=== PATIENT | female | born 1970 | race American Indian/Alaskan Native ===

== ENCOUNTER 2021-09-06 08:19 | Day surgery (SDC) | payer BC ==
[2021-09-06] MEDS ORDERED: Lactated Ringers 1,000 ML IV ONE (09:00)
[2021-09-06] MEDS ORDERED: Cyanocobalamin (Vitamin B12) 1,000 MCG/ML SDV IM ONE (09:00)
[2021-09-06 09:21] LABS: CORONAVIRUS COVID-19 NAA NEGATIVE (NEGATIVE)
[2021-09-06] MEDS ORDERED: Glycopyrrolate 0.2 MG/ML 2 ML SDV IVPUSH ONE (09:45)
[2021-09-06] MEDS ORDERED: MVI, Adult with Vitamin K 10 ML, Thiamine 200 MG, Zinc/Copper/Manganese/Selenium 1 ML i... IV ONE ×4 (10:00)
[2021-09-06] MEDS ORDERED: Propofol 200 MG/20 ML SDV ONE (10:37)
[2021-09-06] MEDS ORDERED: Midazolam 1 MG/ML 2 ML SDV ONE (10:37)
[2021-09-06] MEDS ORDERED: fentaNYL 100 MCG/2 ML SDV ONE (10:37)
[2021-09-06] MEDS ORDERED: Sodium Chloride 0.9% 500 ML ONE (11:58)
--- NOTE | 2021-09-07 14:24 | OR ---
DATE OF PROCEDURE: 09/06/2021 SURGEON: Fabian Dyer MD PREOPERATIVE DIAGNOSIS: Intolerance to laparoscopic adjustable gastric band. POSTOPERATIVE DIAGNOSES: Intolerance to laparoscopic adjustable gastric band. 1. Marked dilation of esophagus with retained bile and food fragments within the distal esophagus. 2. 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 3. Antral gastritis with a single erosion. OPERATIVE PROCEDURE: Upper gastrointestinal endoscopy with: 1. Biopsy of esophagogastric junction for histologic evaluation. 2. Mobilization of retained food within esophagus and to the more distal stomach (53999). 3. Biopsies of the antrum for CLOtest (54831). ANESTHESIA: IV sedation. INDICATION FOR PROCEDURE: The patient status post laparoscopic adjustable gastric band. She over the last year or more has had increasing problems with severe reflux symptoms, vomiting, and quite often cough with a distant aspiration of the esophageal contents when sleeping as such. All the fluid was then deflated out of the band for several months, then she presently is on twice a day regimen of Protonix 40 mg. Despite that, she has ongoing symptoms and is interested in having the band removed. Plan is to proceed with upper GI endoscopy for evaluation of the current anatomic status. Potential risks of the procedure including bleeding and perforation were discussed and the patient wishes to proceed. DETAILS OF PROCEDURE: The patient was taken to the operating room and placed in a left lateral decubitus position. IV sedation was administered after which the upper GI endoscope was passed orally through the length of the esophagus across the esophagogastric junction in the banded portion of the stomach and into the area of the band into the area of the stomach and through the pyloric channel into the junction of third and fourth portions of the duodenum. Findings included markedly dilated esophagus. This contained bile as well as fragments of old food pushed down to the banded portion to avoid problems with aspiration of those contents in the immediate postoperative period. marked dilation with active inflammation in the esophagogastric junction with the mucosa in that area being reddened and quite friable. 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 Remainder of the stomach revealed some reddening of the antrum and a very small amount of fibrinous exudate. Pyloric channel and visualized portions of the duodenum were unremarkable. At this point, biopsies were obtained from the esophagogastric junction and sent for CLOtest for H pylori. The patient is having ongoing treatment of her H pylori. This will be an interesting finding. Apart from that, there were multiple biopsies obtained from the esophagogastric junction, sent for histologic evaluation. No bleeding from the biopsy sites was seen. The procedure then concluded. At this point, the patient clearly meets criteria for removal of the band with esophageal dilation, retained food within the esophagus, and complications leading to including reflux, vomiting, and probable aspiration of esophageal contents related to the chronic cough issues as developed. Plan will be to obtain prior authorization with her insurance basket person regarding the band removal. Fabian Dyer MD /[id number]
== END 2021-09-06 13:20 | disposition home or self-care (01) ==
LOC: JP.SDS 08:19
PROVIDERS: ATTEND Surgery
DX: K91.89 Other postprocedural complications and disorders of digestive system (principal); K21.9 Gastro-esophageal reflux disease without esophagitis; T18.128A Food in esophagus causing other injury, initial encounter; E66.9 Obesity, unspecified; Z01.812 Encounter for preprocedural laboratory examination; Z20.822 Contact with and (suspected) exposure to COVID-19; Z68.34 Body mass index [BMI] 34.0-34.9, adult
CPT/HCPCS: 0241U; 43239; 43247; 87081; J2250; J2704; J3010; J3411; J3420; J3490; J7040; J7120

== ENCOUNTER 2021-12-03 05:30 | Day surgery (SDC) | payer BC ==
[2021-12-03] MEDS ORDERED: Acetaminophen 500 MG Tab PO ONE (05:45)
[2021-12-03] MEDS ORDERED: Celecoxib 200 MG Cap PO ONE (05:45)
[2021-12-03] MEDS ORDERED: Dextrose 5%-Lactated Ringers 1,000 ML IV SCH (06:30)
[2021-12-03] MEDS ORDERED: Bupivacaine 0.5%/EPINEPHrine 1:200,000 50 ML MDV ONE (06:38)
[2021-12-03] MEDS ORDERED: cefOXitin 2 GM Vial ONE (06:38)
[2021-12-03] MEDS ORDERED: fentaNYL 250 MCG/5 ML SDV ONE ×2 (07:05→07:45)
[2021-12-03] MEDS ORDERED: Glycopyrrolate 0.2 MG/ML 5 ML MDV ONE (07:06)
[2021-12-03] MEDS ORDERED: Rocuronium 50 MG/5 ML Vial ONE (07:06)
[2021-12-03] MEDS ORDERED: Succinylcholine 200 MG/10 ML MDV ONE (07:06)
[2021-12-03] MEDS ORDERED: Neostigmine Methylsulfate 1 MG/ML 5 ML Syringe ONE (07:06)
[2021-12-03] MEDS ORDERED: Propofol 200 MG/20 ML SDV ONE (07:06)
[2021-12-03] MEDS ORDERED: Ondansetron 4 MG/2 ML SDV ONE (07:06)
[2021-12-03] MEDS ORDERED: Dexamethasone 4 MG/ML SDV ONE (07:06)
[2021-12-03] MEDS ORDERED: cefOXitin 2 GM in Sodium Chloride 0.9% 50 ML IV ONE (07:15)
[2021-12-03] MEDS ORDERED: Ketamine 500 MG/5 ML MDV IV SCH (07:30)
[2021-12-03] MEDS ORDERED: Ketamine 17 MG in Sodium Chloride 0.9% 19.83 ML IV SCH (07:30)
[2021-12-03] MEDS ORDERED: Labetalol 20 MG/4 ML Syringe ONE (07:54)
[2021-12-03] MEDS: Bupivacaine 0.5% 50 ML MDV ONE ×2 (08:12→08:23)
[2021-12-03] MEDS: Lidocaine 1% with EPINEPHrine 1:100,000 50 ML MDV ONE ×2 (08:13→08:23)
[2021-12-03] MEDS ORDERED: hydrOXYzine HCL 100 MG/2 ML SDV IM ONE (08:48)
[2021-12-03] MEDS ORDERED: fentaNYL 100 MCG/2 ML SDV IVPUSH ONE (08:49)
[2021-12-03] MEDS ORDERED: HYDROmorphone 2 MG Tab PO PRN (10:04)
[2021-12-03] MEDS ORDERED: Ibuprofen 600 MG Tab PO ONE (12:06)
[2021-12-03] MEDS ORDERED: Cyclobenzaprine 10 MG Tab PO PRN (12:10)
== END 2021-12-03 14:10 | disposition home or self-care (01) ==
LOC: JP.SDS 05:30
PROVIDERS: ATTEND Surgery
DX: Z46.51 Encounter for fitting and adjustment of gastric lap band (principal); K44.9 Diaphragmatic hernia without obstruction or gangrene; K43.2 Incisional hernia without obstruction or gangrene; E78.5 Hyperlipidemia, unspecified; K21.9 Gastro-esophageal reflux disease without esophagitis; E66.01 Morbid (severe) obesity due to excess calories; N18.30 Chronic kidney disease, stage 3 unspecified; Z20.822 Contact with and (suspected) exposure to COVID-19
CPT/HCPCS: 88300; 88305; A9270-GY; J0171; J0330; J0694; J1100; J2405; J2704; J2710; J2795; J3010; J3410; J3490; J7030; J7121

== ENCOUNTER 2022-10-18 05:13 | Inpatient (IN) | payer BC, OTHER ==
[2022-10-18] MEDS ORDERED: Acetaminophen 500 MG Tab PO ONE (06:00)
[2022-10-18] MEDS ORDERED: Scopolamine 1.5 MG Transdermal Patch TOP SCH (06:00)
[2022-10-18] MEDS ORDERED: Dextrose 5%-Lactated Ringers 1,000 ML IV SCH (06:00)
[2022-10-18] MEDS ORDERED: Bupivacaine 0.5% 50 ML MDV ONE (06:35)
[2022-10-18] MEDS ORDERED: Lidocaine 1% with EPINEPHrine 1:100,000 50 ML MDV ONE (06:35)
[2022-10-18] MEDS ORDERED: Meropenem 500 MG SDV ONE (06:43)
[2022-10-18] MEDS ORDERED: ceFAZolin 2 GM in Sodium Chloride 0.9% 50 ML IV ONE (07:00)
[2022-10-18] MEDS ORDERED: Dexamethasone 4 MG/ML SDV ONE (07:08)
[2022-10-18] MEDS ORDERED: Succinylcholine 200 MG/10 ML MDV ONE (07:08)
[2022-10-18] MEDS ORDERED: Neostigmine Methylsulfate 1 MG/ML 5 ML Syringe ONE (07:08)
[2022-10-18] MEDS ORDERED: Ondansetron 4 MG/2 ML SDV ONE (07:08)
[2022-10-18] MEDS ORDERED: fentaNYL 250 MCG/5 ML SDV ONE ×2 (07:08→07:52)
[2022-10-18] MEDS ORDERED: Rocuronium 50 MG/5 ML Vial ONE (07:08)
[2022-10-18] MEDS ORDERED: Propofol 200 MG/20 ML SDV ONE (07:08)
[2022-10-18] MEDS ORDERED: Glycopyrrolate 0.2 MG/ML 5 ML MDV ONE (07:08)
[2022-10-18] MEDS ORDERED: Ketamine 17 MG in Sodium Chloride 0.9% 19.83 ML IV SCH (07:30)
[2022-10-18] MEDS ORDERED: Ketamine 500 MG/5 ML MDV IV SCH (07:30)
[2022-10-18] MEDS ORDERED: Ropivacaine 46 ML, dexAMETHasone 8 MG, EPINEPHrine 0.4 MG, Sodium Chloride 0.9% 31.6 ML NERVRT SCH ×4 (07:30)
[2022-10-18] MEDS ORDERED: Linezolid 600 MG/300 ML Premix Bag IRR ONE (08:20)
[2022-10-18] MEDS ORDERED: Lactated Ringers 1,000 ML ONE (08:35)
[2022-10-18] MEDS ORDERED: Sugammadex Sodium 200 MG/2 ML VIAL ONE (08:37)
[2022-10-18] MEDS ORDERED: Ketorolac 30 MG/ML SDV ONE (08:52)
[2022-10-18] MEDS: HYDROmorphone/Normal Saline 6 MG/30 ML PCA Vial IV PRN ×2 (09:55→21:48)
[2022-10-18] MEDS ORDERED: Naloxone 0.4 MG/ML SDV IV PRN (10:00)
[2022-10-18] MEDS ORDERED: Cyclobenzaprine 10 MG Tab PO PRN (10:25)
[2022-10-18] MEDS ORDERED: hydrOXYzine HCL 100 MG/2 ML SDV IM PRN (11:00)
[2022-10-18] MEDS ORDERED: Lactated Ringers 500 ML IV ONE (11:30)
[2022-10-18] MEDS ORDERED: diphenhydrAMINE 50 MG/ML SDV IVPUSH PRN (13:45)
[2022-10-18] MEDS ORDERED: Metoclopramide 10 MG/2 ML SDV IVPUSH PRN (13:45)
[2022-10-18] MEDS ORDERED: Ondansetron 4 MG/2 ML SDV IVPUSH PRN (13:45)
[2022-10-18] MEDS ORDERED: Labetalol 20 MG/4 ML Syringe IVPUSH PRN (13:45)
[2022-10-18] MEDS ORDERED: Acetaminophen 500 MG Tab PO PRN (13:45)
[2022-10-18] MEDS: ceFAZolin 2 GM in Sodium Chloride 0.9% 50 ML IV SCH ×2 (14:54→21:50)
[2022-10-18] MEDS: Acetaminophen 500 MG Tab PO SCH ×2 (14:55→21:53)
[2022-10-18] MEDS: MVI, Adult with Vitamin K 10 ML, Thiamine 200 MG, Zinc/Copper/Manganese/Selenium 1 ML i... IV SCH ×4 (15:00)
[2022-10-18] MEDS: Pantoprazole 40 MG Vial IVPUSH SCH (15:00)
[2022-10-18] MEDS: Heparin Sodium 5,000 Units/ML Vial SUBCUT SCH (17:38)
[2022-10-18] MEDS: Dextrose 5%-Lactated Ringers 1,000 ML IV SCH (21:50)
[2022-10-19] MEDS: Dextrose 5%-Lactated Ringers 1,000 ML IV SCH (05:47)
[2022-10-19] MEDS: Heparin Sodium 5,000 Units/ML Vial SUBCUT SCH ×2 (05:48→17:20)
[2022-10-19] MEDS: Acetaminophen 500 MG Tab PO SCH ×3 (05:48→21:35)
[2022-10-19] MEDS: ceFAZolin 2 GM in Sodium Chloride 0.9% 50 ML IV SCH (07:38)
[2022-10-19] MEDS ORDERED: Dextrose 5%-Lactated Ringers 1,000 ML IV SCH (08:30)
[2022-10-19] MEDS: Celecoxib 200 MG Cap PO SCH ×2 (08:48→21:34)
[2022-10-19] MEDS: SCOPOLAMINE PATCH CHECK TOP SCH (08:49)
[2022-10-19] MEDS: Bisacodyl 5 MG Tab PO SCH ×2 (10:41→21:34)
[2022-10-19] MEDS: Docusate Sodium 100 MG Cap PO SCH ×2 (10:42→21:34)
[2022-10-19] MEDS: HYDROmorphone 2 MG Tab PO PRN ×2 (10:43→17:20)
[2022-10-19] MEDS: Pantoprazole 40 MG Vial IVPUSH SCH (15:18)
[2022-10-19] MEDS: MVI, Adult with Vitamin K 10 ML, Thiamine 200 MG, Zinc/Copper/Manganese/Selenium 1 ML i... IV SCH ×4 (15:18)
[2022-10-19] MEDS ORDERED: Docusate Sodium 100 MG Cap PO SCH (21:00)
[2022-10-20] MEDS: HYDROmorphone 2 MG Tab PO PRN ×2 (03:47→09:06)
[2022-10-20] MEDS: Heparin Sodium 5,000 Units/ML Vial SUBCUT SCH (06:01)
[2022-10-20] MEDS: Acetaminophen 500 MG Tab PO SCH (06:01)
[2022-10-20] MEDS ORDERED: Cyanocobalamin (Vitamin B12) 1,000 MCG/ML SDV IM ONE (09:00)
[2022-10-20] MEDS: Bisacodyl 5 MG Tab PO SCH (09:03)
[2022-10-20] MEDS: Celecoxib 200 MG Cap PO SCH (09:03)
[2022-10-20] MEDS: Docusate Sodium 100 MG Cap PO SCH (09:03)
[2022-10-20] MEDS: SCOPOLAMINE PATCH CHECK TOP SCH (09:04)
[2022-10-20] MEDS ORDERED: Magnesium Hydroxide 400 MG/5 ML Susp 30 ML Cup PO ONE (09:45)
[2022-10-20] MEDS ORDERED: Magnesium Hydroxide 400 MG/5 ML Susp 30 ML Cup PO PRN (17:30)
== END 2022-10-20 11:20 | disposition home or self-care (01) | DRG 227 ==
LOC: JP.SDS 05:13 → JP.MS 08:50
PROVIDERS: ADMIT Surgery; ATTEND Surgery
PROC: 0WUF0JZ Supplement Abdominal Wall with Synthetic Substitute, Open Approach (ICD-10-PCS; principal; 2022-10-18)
PROC: 3E0M05Z Introduction of Adhesion Barrier into Peritoneal Cavity, Open Approach (ICD-10-PCS; 2022-10-18)
PROC: 0DBW0ZZ Excision of Peritoneum, Open Approach (ICD-10-PCS; 2022-10-18)
DX: K43.0 Incisional hernia with obstruction, without gangrene (principal); K21.9 Gastro-esophageal reflux disease without esophagitis; E78.5 Hyperlipidemia, unspecified; K66.9 Disorder of peritoneum, unspecified; F41.9 Anxiety disorder, unspecified; F32.A Depression, unspecified; E66.9 Obesity, unspecified; N18.30 Chronic kidney disease, stage 3 unspecified; Z68.33 Body mass index [BMI] 33.0-33.9, adult
CPT/HCPCS: 88302; 88305; A9270-GY; C1713; C1781; C9113; J0171; J0330; J0690; J1100; J1170; J1644; J1885; J2020; J2185; J2405; J2704; J2710; J2795; J3010; J3410; J3411; J3420; J3490; J7120; J7121